=== PATIENT | female | born 1950 ===

== ENCOUNTER → 2018-03-23 | Outpatient (CLI) | payer BC ==
[~2018-03-23] MED LIST: ATEN25 PO; LEVSOD75 PO; ROSU10TA PO
[2018-03-23 14:06] LABS: Free Thyroxine 1.04 ng/dL (0.70-1.60)
[2018-03-23 14:10] LABS: Thyroid Stimulating Hormone 3.97 uIU/mL (0.360-4.800)
== END ==
LOC: LAB 09:19 → LAB SHORT 09:19
PROVIDERS: Hospitalist
DX: E03.9 Hypothyroidism, unspecified (principal)
CPT/HCPCS: 84439; 84443

== ENCOUNTER → 2021-03-22 | Outpatient (CLI) | payer OTHER ==
[2021-03-22 15:33] LABS: Free Thyroxine 1.56 ng/dL (0.70-1.60); Thyroid Stimulating Hormone 0.033 uIU/mL (0.360-4.800)
== END | disposition home or self-care (01) ==
LOC: LAB 08:43 → LAB SHORT 08:43
PROVIDERS: Hospitalist
DX: E03.9 Hypothyroidism, unspecified (principal)
CPT/HCPCS: 84439; 84443

== ENCOUNTER 2021-10-18 09:36 | Day surgery (SDC) | payer OTHER ==
[~2021-10-18] VITALS: Ht 160 cm; Wt 67.4 kg
[2021-10-18] MEDS ORDERED: LOSA25 (10:51)
== END 2021-10-18 12:23 | disposition home or self-care (01) ==
LOC: ORSCSDS 09:36
PROVIDERS: Internal Medicine Gastroenterology
PROC: 0DBM8ZX Excision of Descending Colon, Via Natural or Artificial Opening Endoscopic, Diagnostic (ICD-10-PCS; principal; 2021-10-18 11:00)
DX: Z12.11 Encounter for screening for malignant neoplasm of colon (principal); Z86.010 Personal history of colon polyps; D12.4 Benign neoplasm of descending colon; K57.30 Diverticulosis of large intestine without perforation or abscess without bleeding; Z79.899 Other long term (current) drug therapy
CPT/HCPCS: 88305; J2704; J7120

== ENCOUNTER → 2022-05-17 | Outpatient (CLI) | payer OTHER ==
[~2022-05-17] MED LIST changes: +LOSA25
[2022-05-17 15:48] LABS: Free Thyroxine 1.49 ng/dL (0.70-1.60)
[2022-05-17 15:52] LABS: Thyroid Stimulating Hormone 0.073 uIU/mL (0.360-4.800); Triiodothyronine, Free 2.76 pg/mL (2.18-3.98)
== END | disposition home or self-care (01) ==
LOC: LAB 10:40 → LAB SHORT 10:40
PROVIDERS: Hospitalist
DX: E03.9 Hypothyroidism, unspecified (principal)
CPT/HCPCS: 84439; 84443; 84481

== ENCOUNTER → 2023-10-20 | Outpatient (CLI) | payer OTHER ==
[2023-10-20 16:45] LABS: CHOL/HDL RATIO 3.5; Cholesterol 216 mg/dL (50-200); Free Thyroxine 1.57 ng/dL (0.70-1.60); HDL Cholesterol 61 mg/dL (>39); LDL/HDL RATIO 2.3; Low Density Lipoprotein Chol 138 mg/dL (0-110); Triglycerides 86 mg/dL (30-160); Very Low Density Lipoprot Chol 17 mg/dL (6-32)
[2023-10-20 16:47] LABS: Thyroid Stimulating Hormone 0.015 uIU/mL (0.360-4.800)
[2023-10-21 09:11] LABS: BILIRUBIN, TOTAL 0.3 mg/dL (0.0-1.2); CALCIUM, SERUM 9.3 mg/dL (8.7-10.3); CREATININE, SERUM 0.85 mg/dL (0.57-1.00); GLOBULIN, TOTAL 2.2 g/dL (1.5-4.5); POTASSIUM, SERUM 4.4 mmol/L (3.5-5.2); PROTEIN, TOTAL, SERUM 6.5 g/dL (6.0-8.5)
== END | disposition home or self-care (01) ==
LOC: LAB SHORT 14:34 → LAB 14:34
PROVIDERS: Hospitalist
DX: E03.9 Hypothyroidism, unspecified (principal); E78.5 Hyperlipidemia, unspecified; I10 Essential (primary) hypertension
CPT/HCPCS: 80053; 80061; 84439; 84443

== ENCOUNTER → 2024-05-15 | Outpatient (CLI) | payer OTHER | LOC: LAB SHORT 14:05 → LAB 14:05 | DX: L30.8 Other specified dermatitis (principal) | CPT/HCPCS: 88305; 88312 ==

== ENCOUNTER → 2025-08-15 | Outpatient (CLI) | payer OTHER ==
[2025-08-15 15:12] LABS: CHOL/HDL RATIO 3.2; Cholesterol 174 mg/dL (50-200); HDL Cholesterol 55 mg/dL (>39); LDL/HDL RATIO 1.8; Low Density Lipoprotein Chol 101 mg/dL (0-110); Triglycerides 90 mg/dL (30-160); Very Low Density Lipoprot Chol 18 mg/dL (6-32)
== END ==
LOC: LAB SHORT 13:53 → LAB 13:53
PROVIDERS: Hospitalist
DX: E78.5 Hyperlipidemia, unspecified (principal)
CPT/HCPCS: 80061